=== PATIENT | female | born 1940 | race Caucasian/White ===

== ENCOUNTER 2021-07-29 10:34 | Day surgery (SDC) | payer OTHER ==
[~2021-07-29] VITALS: Ht 165.1 cm; Wt 60.3 kg
[~2021-07-29 10:34] MED LIST: AMITRIPTYLINE H25 M2 PO; AZELASTINE137 MCG/0. NASAL; BENEFIBER1 EAC1 PO; ELIQUIS5 MG PO; ESTRADIOL42.5 GM VAG; FLECAINIDE ACET50 M1 PO; LEVOTHYROXINE100 MCG PO; MACRODANTIN50 MG PO; METOPROLOL TART25 MG PO; PROBIOTIC1 EAC7 PO; RESTASIS1 EACH OPHTHALMIC; STOOL SOFTENER100 MG PO
[2021-07-29 11:30] VITALS: BP 142/79
[2021-07-29 14:31] VITALS: BP 142/79
--- NOTE | 2021-07-30 17:23 | O ---
[facility] [place] [address] OPERATIVE REPORT Name: JUAN MARTINEZ Room #: DEP [facility].#: [id number] Admission: 07/29/21 Attend Phys: Mason Swift MD Discharge: 07/29/21 Date of : 44 Report #: [id number] THIS REPORT FOR: cc: Susanna Aponte MD, Janice K. 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 PROCEDURE: Right knee arthroscopy with partial medial meniscectomy and debridement of chondromalacia. SURGEON: Mason Swift MD INDICATIONS: This very slender, very active, and very fit 80-year-old female complains of right knee pain, which has been a progressive persistent problem. Clinical exam and MRI scan suggest some tearing of the medial meniscus as well as some mild degenerative chondromalacia. We tried conservative measures without much benefit. She is having difficulty resuming her usual active lifestyle, we have elected to go ahead with right knee arthroscopy. DESCRIPTION OF PROCEDURE: The patient was taken to the operating room where she was placed under brief general anesthetic. The right knee and leg were meticulously prepped and draped. A thigh tourniquet was applied and inflated to 300 mmHg. A lateral suprapatellar inflow cannula was placed. The arthroscope and probe were introduced. The various compartments were sequentially visualized and documented with arthroscopic photography. There was mild synovial hypertrophy and a small parapatellar plica, which was resected. The medial compartment revealed moderate grade 2 to grade 3 chondromalacia on the medial femoral condyle, which was gently debrided removing only the loose and irregular fragmented cartilage. There was better cartilage on the medial tibial plateau and only minor debridement, there was necessary. The medial meniscus did reveal some degenerative tearing, but this was less severe than expected. There was fraying and irregular tearing in the mid medial portion extending back toward the posteromedial corner. This involved only about the inner one-third of the meniscus. This area was debrided, leaving a very stable good appearing mid and outer aspect of the meniscus. The posterior horn and anterior horn appeared to be stable and intact and no debridement there was necessary. [address] [address] OPERATIVE REPORT Name: MICHELLEJUAN Room #: DEP SD M.En.#: [id number] Admission: 07/29/21 Attend Phys: Mason Swift MD Discharge: 07/29/21 Date of : 44 Report #: [id number] The intercondylar notch revealed the cruciate ligaments to be present and functioning normally. No debridement there was necessary. The lateral compartment revealed some synovial hypertrophy and a fairly tight compartment, making visualization difficult. There was some fraying along the inner margin of the lateral meniscus and a limited debridement there was performed. There was also mild chondromalacia on the lateral femoral condyle and lateral tibial plateau, but this was rather minimal and only very minimal debridement was necessary. The patellofemoral articulation reveals only minor fissuring and grooving of the patella and the trochlear region of the distal femur. These areas were gently debrided. There was a slightly deeper and more significant area of cartilage damage at the anterior medial femoral ridge of the patella seemed to abut and abrade there slightly. This was grade 3 to 4 cartilage damage, but it was very small, measuring only about 8-10 mm in diameter. This area was gently debrided. The suprapatellar pouch appeared to be normal. The knee was copiously irrigated. All excess fluid was evacuated from the knee. The knee was then injected with 20 mL of 0.5% Marcaine with epinephrine and 80 mg of Depo-Medrol. The puncture sites were closed with interrupted nylon suture. A sterile dressing was applied. The patient was awakened and returned to the recovery room in good condition. <ELECTRONICALLY SIGNED> By: Mason Swift MD 07/30/21 1723 [id number] Mason Swift MD /nt
== END 2021-07-29 15:15 | disposition home or self-care (01) ==
LOC: OR 10:34 → TBA 10:37 → OR 11:11
PROVIDERS: ATTEND Orthopaedic Surgery
DX: M23.231 Derangement of other medial meniscus due to old tear or injury, right knee (principal); M94.261 Chondromalacia, right knee; I10 Essential (primary) hypertension; I48.91 Unspecified atrial fibrillation; E03.9 Hypothyroidism, unspecified; Z98.890 Other specified postprocedural states; Z79.899 Other long term (current) drug therapy; Z20.822 Contact with and (suspected) exposure to COVID-19; Z98.41 Cataract extraction status, right eye; Z98.42 Cataract extraction status, left eye; Z90.710 Acquired absence of both cervix and uterus; Z79.01 Long term (current) use of anticoagulants
CPT/HCPCS: 50010; 50101; 57103; 62110; 62900; 70005